=== PATIENT | male | born 1945 | race Caucasian/White ===

== ENCOUNTER 2017-09-14 19:15 | Emergency (ER) | payer MEDICARE, OTHER ==
[~2017-09-14] VITALS: Ht 190.5 cm; Wt 92.7 kg
[~2017-09-14 19:15] MED LIST: ATOR10TA70 PO; LISI-644 PO; METO50TA16 PO; MULT-785 PO; OMEP-50 PO
[2017-09-14] MEDS ORDERED: HYDROcodone/acetaminophen 10/325mg tab PO STA (19:41)
[2017-09-14] MEDS ORDERED: cephalexin 250mg capsule PO ONE (20:10)
[2017-09-14] MEDS ORDERED: TETanus/Pertussis (Acell)/Diphther VAC/PF (Tdap-Adult) 0.5ml syringe IM ONE (20:10)
[2017-09-14] MEDS ORDERED: bacitracin 15gm ointment TP ONE (20:10)
[2017-09-14] MEDS ORDERED: LIDOcaine 1.5% w/epinephrine 1:200,000 5ml ampul IJ ONE (20:10)
[2017-09-14] MEDS ORDERED: CEPH250T PO (20:26)
[2017-09-14 21:01] VITALS: BP 136/68
== END 2017-09-14 21:42 | disposition home or self-care (01) ==
LOC: ER 19:15
DX: S82.241B Displaced spiral fracture of shaft of right tibia, initial encounter for open fracture type I or II (principal); I10 Essential (primary) hypertension; Z90.89 Acquired absence of other organs; Z98.890 Other specified postprocedural states; W01.0XXA Fall on same level from slipping, tripping and stumbling without subsequent striking against object, initial encounter; Y93.89 Activity, other specified; Y92.89 Other specified places as the place of occurrence of the external cause; Y99.8 Other external cause status
CPT/HCPCS: 29505; 73590; 90471; 90715; 99284; J3490

== ENCOUNTER 2017-09-19 15:45 | Outpatient (CLI) | payer MEDICARE, OTHER ==
[~2017-09-19] VITALS: Ht 190.5 cm; Wt 90.0 kg
[2017-09-19 13:56] VITALS: BP 169/99
[~2017-09-19 15:45] MED LIST changes: +CEPH250T PO
== END 2017-09-19 16:05 | disposition home or self-care (01) ==
LOC: ORTHO 15:45
PROVIDERS: ATTEND Nurse Practitioner Family
DX: S82.241B Displaced spiral fracture of shaft of right tibia, initial encounter for open fracture type I or II (principal); S82.141A Displaced bicondylar fracture of right tibia, initial encounter for closed fracture; E78.00 Pure hypercholesterolemia, unspecified; I10 Essential (primary) hypertension; J44.9 Chronic obstructive pulmonary disease, unspecified; K21.9 Gastro-esophageal reflux disease without esophagitis; X58.XXXA Exposure to other specified factors, initial encounter; Y93.89 Activity, other specified; Y92.89 Other specified places as the place of occurrence of the external cause; Y99.8 Other external cause status
CPT/HCPCS: 99215

== ENCOUNTER 2017-09-26 10:45 | Outpatient (CLI) | payer MEDICARE, OTHER ==
[2017-09-27] MEDS ORDERED: FLO0.4C PO (16:27)
[2017-09-27] MEDS ORDERED: CLON0.1T PO (16:27)
== END 2017-09-26 23:59 | disposition home or self-care (01) ==
LOC: 64 CT 10:45
PROVIDERS: ATTEND Nurse Practitioner Family
DX: S82.141D Displaced bicondylar fracture of right tibia, subsequent encounter for closed fracture with routine healing (principal); S82.241D Displaced spiral fracture of shaft of right tibia, subsequent encounter for closed fracture with routine healing; F17.200 Nicotine dependence, unspecified, uncomplicated; X58.XXXD Exposure to other specified factors, subsequent encounter
CPT/HCPCS: 73700

== ENCOUNTER 2017-09-28 10:55 | Emergency (ER) | payer MEDICARE, OTHER ==
[~2017-09-28] VITALS: Ht 666.8 cm; Wt 90.9 kg
[~2017-09-28 10:55] MED LIST changes: -CEPH250T PO; +CLON0.1T PO; +FLO0.4C PO; -LISI-644 PO
[2017-09-28 13:26] VITALS: BP 156/91
[2017-10-02] MEDS ORDERED: ringers solution, lacted 1,000 ML IV SCH (09:03)
[2017-10-02] MEDS ORDERED: proCHLORperazine 10 MG/2 ml inj IV PRN (09:05)
[2017-10-02] MEDS ORDERED: meperidine/PF 25mg/ml syringe IV PRN ×3 (09:05)
[2017-10-02] MEDS ORDERED: ondansetron/PF 4mg/2ml inj IV PRN (09:05)
[2017-10-02] MEDS ORDERED: morphine 4 MG/ML inj SYRINge IV PRN ×2 (09:05)
== END 2017-09-28 13:34 | disposition home or self-care (01) ==
LOC: ER 10:56
DX: S81.811D Laceration without foreign body, right lower leg, subsequent encounter (principal); E78.00 Pure hypercholesterolemia, unspecified; I10 Essential (primary) hypertension; J44.9 Chronic obstructive pulmonary disease, unspecified; K21.9 Gastro-esophageal reflux disease without esophagitis; Z79.899 Other long term (current) drug therapy; W18.30XD Fall on same level, unspecified, subsequent encounter
CPT/HCPCS: 29505; 99283; A6449

== ENCOUNTER 2017-10-02 09:35 | Observation (INO) | payer MEDICARE, OTHER ==
[2017-09-27 14:13] LABS: BASOPHILS % (AUTO) 0.6 % (0-1); EOSINOPHILS # (AUTO) 0.1 X10'3 (0-0.9); LYMPHOCYTES # (AUTO) 1.5 X10'3 (1.1-4.8); LYMPHOCYTES % (AUTO) 20.4 % (21-51); MEAN CORPUSCULAR HEMOGLOBIN 30.6 PG (27.0-31.0); MEAN CORPUSCULAR HGB CONC 34.5 % (33.0-36.5); MEAN CORPUSCULAR VOLUME 88.9 FL (78-98); MEAN PLATELET VOLUME 8.1 FL (7.4-10.4); MONOCYTES # (AUTO) 0.4 X10'3 (0-0.9); MONOCYTES % (AUTO) 5.5 % (2-12); NEUTROPHILS # (AUTO) 5.3 X10'3 (1.8-7.7); NEUTROPHILS % (AUTO) 71.5 % (42-75); PRE OP HEMATOCRIT 42.1 % (42.0-52.0); PRE OP HEMOGLOBIN 14.5 g/dL (14.0-17.9); PRE OP PLATELET COUNT 170 X10'3 (140-440); RED BLOOD COUNT 4.73 X10'6 (4.70-6.10); RED CELL DISTRIBUTION WIDTH 14.2 % (11.5-14.5)
[2017-09-27 14:31] LABS: ALBUMIN 3.3 G/DL (3.4-5.0); ALBUMIN/GLOBULIN RATIO 0.8 (1.1-1.5); ALKALINE PHOSPHATASE 126 IU/L (46-116); BLOOD UREA NITROGEN 19 MG/DL (7-18); BUN/CREATININE RATIO 19.2 (5.4-32.0); CALCIUM 8.9 MG/DL (8.5-10.1); CHLORIDE 105 MMOL/L (99-107); CREATININE 0.99 MG/DL (0.60-1.10); PRE OP ALT 34 U/L (30-65); PRE OP ANION GAP 8 (8-16); PRE OP AST 28 U/L (10-37); PRE OP BILIRUB, TOTAL 1.1 MG/DL (0.0-1.0); PRE OP GLUCOSE 101 MG/DL (70-104); PRE OP POTASSIUM 4.6 MMOL/L (3.4-5.1); PRE OP SODIUM 142 MMOL/L (135-145); TOTAL CARBON DIOXIDE 29.1 MMOL/L (24-32); TOTAL PROTEIN 7.2 G/DL (6.4-8.2); eGFR 74 ML/MIN
[~2017-10-02] VITALS: Ht 190.5 cm; Wt 93.2 kg
[2017-10-02] VITALS (17 sets, daily range): BP systolic 124–186; BP diastolic 66–119
[~2017-10-02 09:35] MED LIST changes: +Cefazolin 2GM/50ML dext iso,osmotic IVPB IV ONE; +DOCUMENT DATE & TIME OF BETA-BLOCKER PO ONE; +famotidine 20mg tablet PO ONE; +vancomycin inj 1,500 MG in normal saline 300ml IV soln IV ONE
[2017-10-02] MEDS ORDERED: CEPH250C PO (10:44)
[2017-10-02] MEDS ORDERED: METO50TA17 PO (10:48)
[2017-10-02] MEDS ORDERED: MIDAZolam 1mg/ml 10ml vial ONE (11:02)
[2017-10-02] MEDS ORDERED: fentaNYL/PF 50MCG/1 ML 2ML syringe ONE (11:02)
[2017-10-02] MEDS ORDERED: ceFAZolin 1000mg inj ONE (11:40)
[2017-10-02] MEDS ORDERED: ROPIVAcaine 0.5% (5mg/ml) 30ml vial ONE ×2 (13:11)
[2017-10-02] MEDS ORDERED: oxyCODONE IR 5mg (immed. release) tablet PO PRN (13:30)
[2017-10-02] MEDS ORDERED: diphenhydrAMINE 25mg capsule PO PRN ×2 (13:30)
[2017-10-02] MEDS ORDERED: ondansetron/PF 4mg/2ml inj IV PRN (13:30)
[2017-10-02] MEDS ORDERED: HYDROmorphone 1 mg/ml syringe IV PRN ×2 (13:30)
[2017-10-02] MEDS ORDERED: magnesium hydroxide 30ml (MOM) UD suspension PO PRN (13:30)
[2017-10-02] MEDS ORDERED: bisacodyl 10mg suppository rectal RC PRN (13:30)
[2017-10-02] MEDS ORDERED: acetaminophen 325mg tablet PO PRN (13:30)
[2017-10-02] MEDS: acetaminophen 325mg tablet PO SCH ×2 (15:03→20:22)
[2017-10-02] MEDS: oxyCODONE IR 5mg (immed. release) tablet PO PRN ×2 (16:09→20:21)
[2017-10-02] MEDS: potassium cl 20mEq in 1/2 NS 1,000 ML IV SCH ×2 (16:10→21:27)
[2017-10-02] MEDS: ceFAZolin 1GM/D5W- ADD-VANTAGE 50 ML IV SCH (16:11)
[2017-10-02] MEDS ORDERED: cephalexin 500mg capsule PO SCH (20:00)
[2017-10-02] MEDS ORDERED: vancomycin/NS 1 GM ADD-VANTAGE 250 ML IV SCH (20:00)
[2017-10-02] MEDS: metoprolol tartrate 50mg tablet PO SCH (20:22)
[2017-10-02] MEDS: gabapentin 300mg capsule PO SCH (20:22)
[2017-10-02] MEDS: pantoprazole 40mg Tablet.DR PO SCH (20:22)
[2017-10-02] MEDS: cloNIDine 0.1 mg tablet PO SCH (20:22)
[2017-10-02] MEDS ORDERED: atorvastatin 10mg tablet PO SCH (21:00)
[2017-10-02] MEDS ORDERED: tamsulosin 0.4mg capsule PO SCH (21:00)
[2017-10-02] MEDS ORDERED: sennosides 8.6mg tablet PO SCH (21:00)
[2017-10-03] MEDS: ceFAZolin 1GM/D5W- ADD-VANTAGE 50 ML IV SCH (00:13)
[2017-10-03] MEDS: oxyCODONE IR 5mg (immed. release) tablet PO PRN ×2 (00:27→05:10)
[2017-10-03] MEDS: acetaminophen 325mg tablet PO SCH ×3 (00:27→13:28)
[2017-10-03 02:10] VITALS: BP 171/106
[2017-10-03] MEDS: potassium cl 20mEq in 1/2 NS 1,000 ML IV SCH (05:38)
[2017-10-03 05:42] LABS: BASOPHILS % (AUTO) 0.2 % (0-1); EOSINOPHILS # (AUTO) 0.1 X10'3 (0-0.9); HEMATOCRIT 41.5 % (42.0-52.0); HEMOGLOBIN 14.3 g/dl (14.0-17.9); LYMPHOCYTES # (AUTO) 1.1 X10'3 (1.1-4.8); MEAN CORPUSCULAR HEMOGLOBIN 30.5 PG (27.0-31.0); MEAN CORPUSCULAR HGB CONC 34.6 % (33.0-36.5); MEAN CORPUSCULAR VOLUME 88.3 FL (78-98); MONOCYTES # (AUTO) 0.6 X10'3 (0-0.9); MONOCYTES % (AUTO) 6.2 % (2-12); NEUTROPHILS # (AUTO) 8.3 X10'3 (1.8-7.7); NEUTROPHILS % (AUTO) 81.6 % (42-75); PLATELET COUNT 175 X10'3 (140-440); RED CELL DISTRIBUTION WIDTH 14.1 % (11.5-14.5); WHITE BLOOD COUNT 10.2 X10'3 (4.5-11.0)
[2017-10-03 06:00] VITALS: BP 144/101
[2017-10-03 06:20] LABS: ANION GAP 7 (8-16); CHLORIDE 101 MMOL/L (99-107); POTASSIUM 4.7 MMOL/L (3.5-5.1); SODIUM 136 MMOL/L (135-145); TOTAL CARBON DIOXIDE 27.8 MMOL/L (24-32)
[2017-10-03] MEDS ORDERED: ASPI-1264 PO (06:59)
[2017-10-03] MEDS ORDERED: HYDR-565 PO (06:59)
[2017-10-03] MEDS: gabapentin 300mg capsule PO SCH ×2 (07:41→13:27)
[2017-10-03] MEDS: metoprolol tartrate 50mg tablet PO SCH (07:42)
[2017-10-03] MEDS: cloNIDine 0.1 mg tablet PO SCH (07:42)
[2017-10-03] MEDS: pantoprazole 40mg Tablet.DR PO SCH (07:42)
[2017-10-03] MEDS ORDERED: cephalexin 500mg capsule PO SCH (08:00)
[2017-10-03] MEDS ORDERED: lisinopril 20mg tablet PO SCH (08:00)
[2017-10-03] MEDS ORDERED: multivitamins, therapeutics tablet PO SCH (08:00)
[2017-10-03 10:00] VITALS: BP 121/67
[2017-10-03 13:00] VITALS: BP 112/59
[2017-10-03] MEDS ORDERED: lactobacillus rhamnosus 10,000 MMU CELLS/CAPSULE PO SCH (20:00)
[2017-10-04] MEDS ORDERED: acetaminophen 325mg tablet PO PRN (13:30)
== END 2017-10-03 16:50 | disposition home or self-care (01) ==
LOC: PAS 09:35 → ORTHO 4S 13:27
PROVIDERS: ADMIT Orthopaedic Surgery; ATTEND Orthopaedic Surgery
DX: S82.251A Displaced comminuted fracture of shaft of right tibia, initial encounter for closed fracture (principal); S82.141A Displaced bicondylar fracture of right tibia, initial encounter for closed fracture; E78.5 Hyperlipidemia, unspecified; I10 Essential (primary) hypertension; J44.9 Chronic obstructive pulmonary disease, unspecified; K21.9 Gastro-esophageal reflux disease without esophagitis; N40.0 Benign prostatic hyperplasia without lower urinary tract symptoms; F17.210 Nicotine dependence, cigarettes, uncomplicated; W01.0XXA Fall on same level from slipping, tripping and stumbling without subsequent striking against object, initial encounter; Y93.89 Activity, other specified; Y92.89 Other specified places as the place of occurrence of the external cause; Y99.8 Other external cause status; Z85.528 Personal history of other malignant neoplasm of kidney
CPT/HCPCS: 27758; 36415; 71046; 73560; 76001; 80051; 80053; 85025; 87070; 93005; 96365; 96366; 96367; 96375; A4353; A6222; A6449; C1713; C1750; G0378; J0690; J1170; J2250; J2405; J2795; J3010; J3370; J7120; A7000

== ENCOUNTER 2017-10-11 11:24 | Outpatient (CLI) | payer MEDICARE, OTHER ==
[2017-10-11 11:24] VITALS: BP 181/106
[~2017-10-11 11:24] MED LIST changes: +ASPI-1264 PO; +CEPH250C PO; -Cefazolin 2GM/50ML dext iso,osmotic IVPB IV ONE; -DOCUMENT DATE & TIME OF BETA-BLOCKER PO ONE; +HYDR-565 PO; -METO50TA16 PO; +METO50TA17 PO; -famotidine 20mg tablet PO ONE; -vancomycin inj 1,500 MG in normal saline 300ml IV soln IV ONE
== END 2017-10-11 12:15 | disposition home or self-care (01) ==
LOC: ORTHO 11:24
PROVIDERS: ATTEND Nurse Practitioner Family
DX: S82.241 Displaced spiral fracture of shaft of right tibia (principal); W18.09XD Striking against other object with subsequent fall, subsequent encounter; Y92.79 Other farm location as the place of occurrence of the external cause
CPT/HCPCS: 73590; 99213; A6449

== ENCOUNTER 2017-10-18 15:13 | Outpatient (CLI) | payer MEDICARE, OTHER ==
[2017-10-18 15:10] VITALS: BP 179/112
== END 2017-10-18 15:52 | disposition home or self-care (01) ==
LOC: ORTHO 15:13
PROVIDERS: ATTEND Nurse Practitioner Family
DX: S82.141D Displaced bicondylar fracture of right tibia, subsequent encounter for closed fracture with routine healing (principal); S82.241 Displaced spiral fracture of shaft of right tibia; F17.210 Nicotine dependence, cigarettes, uncomplicated; E78.00 Pure hypercholesterolemia, unspecified; I10 Essential (primary) hypertension; J44.9 Chronic obstructive pulmonary disease, unspecified; Z98.890 Other specified postprocedural states; Z79.899 Other long term (current) drug therapy; W01.0XXD Fall on same level from slipping, tripping and stumbling without subsequent striking against object, subsequent encounter
CPT/HCPCS: 99214; A6449

== ENCOUNTER → 2017-11-01 | Outpatient (CLI) | payer MEDICARE, OTHER ==
[2017-11-01 13:52] VITALS: BP 130/75
[2017-11-01 14:45] VITALS: BP 159/111
== END | disposition home or self-care (01) ==
LOC: ORTHO 14:32
PROVIDERS: ATTEND Nurse Practitioner Family
DX: S82.141G Displaced bicondylar fracture of right tibia, subsequent encounter for closed fracture with delayed healing (principal); S82.241 Displaced spiral fracture of shaft of right tibia; F17.210 Nicotine dependence, cigarettes, uncomplicated; E78.00 Pure hypercholesterolemia, unspecified; I10 Essential (primary) hypertension; Z79.899 Other long term (current) drug therapy; W01.0XXD Fall on same level from slipping, tripping and stumbling without subsequent striking against object, subsequent encounter
CPT/HCPCS: 73590; 99213; A6449

== ENCOUNTER 2017-12-12 12:01 | Outpatient (CLI) | payer MEDICARE, OTHER ==
[2017-12-12 11:27] VITALS: BP 163/94
[~2017-12-12 12:01] MED LIST changes: -ASPI-1264 PO; -HYDR-565 PO
== END 2017-12-12 13:01 | disposition home or self-care (01) ==
LOC: ORTHO 12:01
PROVIDERS: ATTEND Nurse Practitioner Family
DX: S82.141D Displaced bicondylar fracture of right tibia, subsequent encounter for closed fracture with routine healing (principal); S82.241 Displaced spiral fracture of shaft of right tibia; E78.00 Pure hypercholesterolemia, unspecified; I10 Essential (primary) hypertension; J44.9 Chronic obstructive pulmonary disease, unspecified; F17.210 Nicotine dependence, cigarettes, uncomplicated; Z79.899 Other long term (current) drug therapy; Z90.5 Acquired absence of kidney; W01.0XXD Fall on same level from slipping, tripping and stumbling without subsequent striking against object, subsequent encounter
CPT/HCPCS: 73590; 99213

== ENCOUNTER 2018-01-01 10:22 | Outpatient (CLI) | payer MEDICARE, OTHER ==
[2018-01-01 10:21] VITALS: BP 150/97
== END 2018-01-01 11:10 | disposition home or self-care (01) ==
LOC: ORTHO 10:22
PROVIDERS: ATTEND Nurse Practitioner Family
DX: S82.141G Displaced bicondylar fracture of right tibia, subsequent encounter for closed fracture with delayed healing (principal); S82.241D Displaced spiral fracture of shaft of right tibia, subsequent encounter for closed fracture with routine healing; E78.00 Pure hypercholesterolemia, unspecified; I10 Essential (primary) hypertension; F17.210 Nicotine dependence, cigarettes, uncomplicated; J44.9 Chronic obstructive pulmonary disease, unspecified; Z79.899 Other long term (current) drug therapy; W18.09XD Striking against other object with subsequent fall, subsequent encounter
CPT/HCPCS: 73590; 99212

== ENCOUNTER 2018-02-03 13:06 | Outpatient (CLI) | payer MEDICARE, OTHER ==
[2018-02-03 13:06] VITALS: BP 169/105
== END 2018-02-03 13:47 | disposition home or self-care (01) ==
LOC: ORTHO 13:06
PROVIDERS: ATTEND Nurse Practitioner Family
DX: S82.141D Displaced bicondylar fracture of right tibia, subsequent encounter for closed fracture with routine healing (principal); E78.00 Pure hypercholesterolemia, unspecified; I10 Essential (primary) hypertension; J44.9 Chronic obstructive pulmonary disease, unspecified; F17.210 Nicotine dependence, cigarettes, uncomplicated; Z72.89 Other problems related to lifestyle; W18.09XD Striking against other object with subsequent fall, subsequent encounter
CPT/HCPCS: 73562; 73590; 99213

== ENCOUNTER 2018-03-31 12:55 | Outpatient (CLI) | payer MEDICARE, OTHER ==
[2018-03-31 12:58] VITALS: BP 154/100
== END 2018-03-31 13:42 | disposition home or self-care (01) ==
LOC: ORTHO 12:55
PROVIDERS: ATTEND Nurse Practitioner Family
DX: S82.291D Other fracture of shaft of right tibia, subsequent encounter for closed fracture with routine healing (principal); I10 Essential (primary) hypertension; J44.9 Chronic obstructive pulmonary disease, unspecified; Z79.899 Other long term (current) drug therapy; Z72.89 Other problems related to lifestyle; W01.0XXD Fall on same level from slipping, tripping and stumbling without subsequent striking against object, subsequent encounter
CPT/HCPCS: 73590; 99212

== ENCOUNTER 2019-11-24 14:38 | Emergency (ER) | payer MEDICARE, OTHER ==
[~2019-11-24] VITALS: Ht 185.4 cm; Wt 75.7 kg
[2019-11-24] MEDS ORDERED: morphine 4 MG/ML inj SYRINge IV PRN (16:25)
[2019-11-24] MEDS ORDERED: ondansetron/PF 4mg/2ml inj IV ONE (16:25)
[2019-11-24] MEDS ORDERED: normal saline 1000ML IV soln IVB ONE (16:25)
[2019-11-24 17:09] LABS: BASOPHILS # (AUTO) 0.1 X10'3 (0-0.2); BASOPHILS % (AUTO) 0.4 % (0-1); EOSINOPHILS % (AUTO) 0.2 % (0-6); HEMATOCRIT 42.5 % (42.0-52.0); HEMOGLOBIN 14.2 g/dl (14.0-17.9); LYMPHOCYTES # (AUTO) 1.9 X10'3 (1.1-4.8); LYMPHOCYTES % (AUTO) 12.6 % (21-51); MEAN CORPUSCULAR HEMOGLOBIN 30.2 PG (27.0-31.0); MEAN CORPUSCULAR HGB CONC 33.5 g/dL (33.0-36.5); MEAN CORPUSCULAR VOLUME 90.2 FL (78-98); MEAN PLATELET VOLUME 9.2 FL (7.4-10.4); MONOCYTES # (AUTO) 0.6 X10'3 (0-0.9); MONOCYTES % (AUTO) 4.3 % (2-12); NEUTROPHILS # (AUTO) 12.2 X10'3 (1.8-7.7); NEUTROPHILS % (AUTO) 82.5 % (42-75); PLATELET COUNT 182 X10'3 (140-440); RED BLOOD COUNT 4.71 X10'6 (4.70-6.10); RED CELL DISTRIBUTION WIDTH 15.1 % (11.5-14.5); WHITE BLOOD COUNT 14.8 X10'3 (4.5-11.0)
[2019-11-24] MEDS ORDERED: iohexol 300mg/ml 100ml inj. ONE (17:17)
[2019-11-24 17:22] LABS: ALANINE AMINOTRANSFERASE 22 U/L (12-78); ALBUMIN 2.8 G/DL (3.4-5.0); ALBUMIN/GLOBULIN RATIO 0.8 (1.1-1.5); ALKALINE PHOSPHATASE 104 IU/L (46-116); ANION GAP 9 (8-16); ASPARTATE AMINO TRANSFERASE 25 U/L (10-37); BILIRUBIN,TOTAL 1.1 MG/DL (0.1-1.0); BLOOD UREA NITROGEN 20 MG/DL (7-18); BUN/CREATININE RATIO 18.5 (5.4-32.0); CALCIUM 9.1 MG/DL (8.5-10.1); CHLORIDE 105 MMOL/L (99-107); CREATININE 1.08 MG/DL (0.60-1.10); GLUCOSE 92 MG/DL (70-104); LIPASE 141 U/L (73-393); MAGNESIUM 1.5 MG/DL (1.5-2.4); POTASSIUM 4.2 MMOL/L (3.5-5.1); SODIUM 142 MMOL/L (135-145); TOTAL CARBON DIOXIDE 27.9 MMOL/L (24-32); TOTAL PROTEIN 6.4 G/DL (6.4-8.2); eGFR 67 ML/MIN
--- NOTE | 2019-11-24 18:04 | NUR ---
I spoke to his Shyanne.
[2019-11-24] MEDS: diatr meglu/diatrizoate 30ml oral sol.-(3 dose) bottle PO SCH ×3 (18:35→20:01)
[2019-11-25 00:24] VITALS: BP 125/53
[2019-11-26] MEDS ORDERED: ASCO125T PO (02:50)
[2019-11-26] MEDS ORDERED: LISI-600 PO (02:50)
[2019-11-26] MEDS ORDERED: CHOL10006 PO (02:50)
== END 2019-11-25 00:22 | disposition home or self-care (01) ==
LOC: ER 14:39
DX: K55.1 Chronic vascular disorders of intestine (principal); E78.00 Pure hypercholesterolemia, unspecified; I10 Essential (primary) hypertension; J44.9 Chronic obstructive pulmonary disease, unspecified; K21.9 Gastro-esophageal reflux disease without esophagitis; Z87.11 Personal history of peptic ulcer disease; Z98.890 Other specified postprocedural states; Z79.2 Long term (current) use of antibiotics; Z79.899 Other long term (current) drug therapy
CPT/HCPCS: 36415; 71045; 74176; 74177; 80053; 83605; 83690; 83735; 85025; 96360; 96361; 99285; J7030; Q9963; Q9967